=== PATIENT | female | born 1995 | race Caucasian/White ===

== ENCOUNTER 2024-07-31 22:55 | Outpatient (REF) | payer SELFPAY ==
[2024-07-31 21:51] LABS: Bilirubin Negative (Negative); Blood Trace-lysed (Negative); Clarity Clear (Clear); Glucose Negative (Negative); Ketones Negative (Negative); Leukocyte Esterase Trace (Negative); Nitrite Negative (Negative); Urobilinogen 0.2 mg/dL (Up to 0.2)
[2024-07-31 22:10] LABS: Bacteria Negative HPF (Negative); C & S Indicated? No; Crystals Negative HPF (Negative); Epithelial Cells Negative HPF (Negative); Mucus Negative (Negative); RBC 0-2 HPF (0-2); WBC 0-2 HPF (0-5)
--- OUTSIDE RECORDS SUMMARY | 2024-07-31 22:59 | XMS_ITS | Encounter Summary ---
Author Organization [facility] Address [address] [place] [address] Care Team Providers Care Traveling Operator Name Role Phone Pilar Lazcano MD Primary Care Provider Unavailabl e Reason for Referral * Consult, Test and Treat (Routine/Next Available) - Closed Specialty Diagnoses / Procedures Referred By Richard dee Referred To Contact Diagnoses Knee pain Pes planus Patellofemoral joint pain Diana Nunn MD Phone: tel: fax: Referral ID Status Reason Start Date Expiration Date V isits Requested Visits Authorized [id number] Closed Specialty Services Required 06/19/2012 1 1 Question Answer Reason for Request: knee pain, pes planus, patellofemoral pain Comments Please evaluate and treat, quads strengthening, establish home exercise program Reason for Visit * Reason Comments New Patient Visit bilateral knee pain Encounter Details Date Type Department Care Team (Latest Contact Info) Description 06/19/2012 10:00 EDT Office Visit [facility] Pediatric Rheumatology - [facility] [address] [place] [address] Diana Nunn MD [address] [place] [address] Knee pain; Pes planus; Patellofemoral joint pain Discharge Disposition: Auto Discharge Social History Tobacco Use Types Packs/Day Years Used Date Smoking Tobacco: Never Alcohol Use Standard Drinks/Week Comments No 0 (1 standard drink = 0.6 oz pur e alcohol) Comments Unknown Sex and Gender Information Value Date Recorded Sex Assigned at Not on file Legal Sex Female 18:57 EST Gender Identity Not on file Sexual Orientation Not on file documented as of this encounter Last Filed Vital Signs Vital Sign Reading Time Taken Comments Blood Pressure 136/74 06/19/2012 1003 EDT Pulse 71 06/19/2012 1003 EDT Temperature 36.9 ??C (98.4 ??F) 06/19/2012 1003 EDT Respiratory Rate - - Oxygen Saturation - - Inhaled Oxygen Concentration - - Weight 60.5 kg (133 lb 6.1 oz) 06/19/2012 1003 E DT Height 172.5 cm (5' 7.91) 06/19/2012 1003 EDT Body Mass Index 20.33 06/19/2012 1003 EDT Body Mass Index Percentile 50.86% 06/19/2012 100 3 EDT Growth Chart: [facility] (Girls, 2- 20 Years) documented in this encounter Patient Instructions * Patient Instructions* Diana Nunn - 06/19/2012 10:51 EDT Try arch supports If pain persists try PT Likely diagnoses-flat feet, patellofemoral pain documented in this encounter Discharge Disposition Disposition Code Departure Means Destination Auto Discharge documented in this encounter Progress Notes * Diana Nunn - 06/19/2012 1601 EDT Pediatric Rheumatology New Patient Visit 06/19/2012 Reason for referral: New Patient Visit HPI: Polina is seen for the first time in pediatric rheumatology clinic at the request of her PCP:PILAR LAZCANO MD. She has had bilateral knee pain since 03/2012, began in right knee and then spread to the left. Dr. Lazcano felt she had some swelling, had xrays and labs with normal CBC and ESR. She wastried on NSAIDs without much benefit and referred here for further evaluation. Polina has experienced: joint pain and joint swelling and not experienced: alopecia, decrease appetite, chest pain, cough, eye symptoms, fatigue, fevers, GI symptoms, headache, morning stiffness, oral ulcers, rash, Raynaud's Syndrome, shortness of breath, tickbite, weight loss and weight gain. Immunizations are up-to-date. Had a tetanus booster given after these symptoms had started. Climbing stairs and knee extension exercises make the pain worse. No outpatient prescriptions prior to visit. ROS: System Negative Positive Comments Constitutional X Eyes X ENT X Cardiovascular X Pulmonary X Gastrointestinal X Genitourinary X Muscoloskeletal x See HPI Integument/breast X Neurological X Psychiatric X Endocrine x Has a lot of menstrual cramps Hematologic/Lymph X Allergic/Immunologic X Allergies include: Review of patient's allergies indicates no known allergies. Past Medical History Diagnosis Date ??? Allergy environmental ??? Asthma ??? Joint pain ??? Kidney pain recurrent UTI Family History Problem Relation Age of Onset ??? * Mother ??? Melanoma Mother ??? Diabetes Maternal Grandmother ??? Psoriasis Neg Hx ??? Lyme Disease Neg Hx ??? Kidney Disease Neg Hx ??? Inflammatory Bowel Disease Neg Hx ??? Arthritis-Rheumatoid Neg Hx ??? Autoimmune Disease Neg Hx ??? Celiac Disease Neg Hx No past surgical history on file. Living Conditions ??? Lives with Parents Weekdays ??? Education Grade 10 ??? Reported academic performance Average Safety and Environmental Exposures History Substance Use Topics ??? Smoking status: Never Smoker ??? Smokeless tobacco: Not on file ??? Alcohol Use: No History Drug Use No History Sexual Activity ??? Sexually Active: No History Social History Narrative ??? No narrative on file LABS: No results found for any previous visit. Physical Examination: BP 136/74 Pulse 71 Temp(Src) 36.9 ??C (98.4 ??F) (Tympanic) Ht 172.5 cm (67.91) Wt 60.5 kg(133 lb 6.1 oz) BMI 20.33 kg/m2 General: alert, cooperative and no acute distress Growth: normal interval growth Head/Neck: No adenopathy and normal thyroid Eyes: ELEONORA, normal fundi and no synechiae Nose: patent and no erosions Mouth: no oral ulcers and palate clear Nodes: No axillary, inguinal adenopathy or tendernes Chest: lungs clear, no wheezes and no rales CVS: RRR, no murmur, normal pulses and no rub Abdomen: soft, , normal bowel sounds, no hepatosplenomegaly and no masses Skin: No rash noted Neuro: Normal tone, reflexes, and strength MSK: all joints have FROM, no pain on ROM, no swelling or limitation of range noted, gait normal, leg lengths are equal , jaw is symmetric, FROM of the cervical spine and she has some pes planus, pain is elicited with some patellar compression. No tenderness of the tibial tubercle. Impression/Plan: Likely mechanical pain related to pes planus as well as patellofemoral pain. I would recommend orthotics and if not helpful PT referral given. I spent a total of 60 minutes in face to face time with this patient and 40 minutes of that time was spent in counseling and coordination of care as described in the progress note. Diana Nunn MD 06/19/2012 16:01 documented in this encounter Plan of Treatment Scheduled Referrals Name Type Priority Associated Diagnoses Orde r Schedule AMB CONSULT PHYSICAL THERAPY Outpatient Referral Routine Knee pain Pes planus Patellofemoral joint pain Ordered: 06/19/2012 documented as of this encounter Visit Diagnoses Diagnosis Knee pain Pain in joint, lower leg Pes planus Flat foot documented in this encounter Care Teams Traveling Operator Relationship Specialty Start Date End Date Pilar Lazcano MD PCP - General 05/28/12 documented as of this encounter
--- OUTSIDE RECORDS SUMMARY | 2024-07-31 22:59 | XMS_ITS | Encounter Summary ---
Author Organization [facility] Address [address] [place] [address] Care Team Providers Care Director Equipment Name Role Phone Xavi Lazcano MD Primary Care Provider Unavailabl e Encounter Details Date Type Department Care Team (Late st Contact Info) Description 01/04/2018 Results Only [facility] [phone] Ronda Medina, [employer]ER [address] [facility] [address] [place] [id number] Social History Tobacco Use Types Packs/Day Years Used Date Smoking Tobacco: Never Alcohol Use Standard Drinks/Week Comments No 0 (1 standard drink = 0.6 oz pur e alcohol) Comments Unknown Sex and Gender Information Value Date Recorded Sex Assigned at Not on file Legal Sex Female 18:57 EST Gender Identity Not on file Sexual Orientation Not on file documented as of this encounter Plan of Treatment Not on file documented as of this encounter Procedures Procedure Name Priority Date/Time Associated Diagnosis Comments PAP TEST- RESULT ONLY Routine 01/04/2018 0:00 EDT documented in this encounter Results * PAP TEST- RESULT ONLY (01/04/2018 0:00 EDT) Pathology Report: CYTOPATHOLOGY REPORT Reports generated via electronic interface contain original data; however they are lacking the format of the original report. Caution should be taken when reading/interpreti ng unformatted reports. Name: ? PAMELA ALEXANDER ? Accession #: ? [id number] : ? 1995 (Age: 22) ??F ?Collect Date: ? 01/04/2018 Location: ? [facility] ? Receive Date: ? 01/08/2018 Provider: ?RONDA MEDINA [employer]ER Copy to: ? Specimen/Source: ?Pap Test, Cervix/Endocervix, ThinPrep Imaging System with manual evaluation Last Menstrual Period: ? 12/22/2017 ? SPECIMEN ADEQUACY ? Satisfactory for Evaluation - transformation zone component present GENERAL CATEGORIZATION ? Negative for Intraepithelial Lesion or Malignancy ? Document reviewed and electronically signed by: ? WILBERT Dc(ASCP) ? Report Date: ??01/15/2018 13:26 End of Report [facility] 01/04/2018 01/08/2018 us Ronda Medina [employer] PATHOLOGY ORDERABLES Mary her Result [facility] [address] [place] [address] documented in this encounter Visit Diagnoses Not on filedocumented in this encounter Care Teams Director Equipment Relationship Specialty Start Date End Date Xavi Lazcano MD PCP - General 05/28/12 documented as of this encounter
--- OUTSIDE RECORDS SUMMARY | 2024-07-31 22:59 | XMS_ITS | Clinical Summary ---
Author Organization [facility] Address [address] [place] [address] Care Team Providers Care Powder Cutting Operator Name Role Phone Xavi Lazcano MD Primary Care Provider Unavailabl e Allergies No known active allergies Medications No known medications Medical History Medical History Date Comments Allergy environmental Asthma Joint pain Kidney pain recurrent UTI Family History Medical History Relation Comments Diabetes Maternal Grandmother *Other(comment) Mother Melanoma Mother Arthritis-Rheumatoid Neg Hx Autoimmune Disease Neg Hx Celiac Disease Neg Hx Inflammatory Bowel Disease Neg Hx Kidney Disease Neg Hx Lyme Disease Neg Hx Psoriasis Neg Hx Relation Status Comments Brother Alive Father Alive Maternal Grandmother Mother Alive Sister Alive Social History Tobacco Use Types Packs/Day Years Used Date Smoking Tobacco: Never Alcohol Use Standard Drinks/Week Comments No 0 (1 standard drink = 0.6 oz pur e alcohol) Comments Unknown Sex and Gender Information Value Date Recorded Sex Assigned at Not on file Legal Sex Female 18:57 EST Gender Identity Not on file Sexual Orientation Not on file Obstetrics History Last Filed Vital Signs Vital Sign Reading [...] Body Mass Index 20.33 06/19/2012 1003 EDT Plan of Treatment Health Maintenance Due Date Last Done Comments Hepatitis C Screen 1995 Hepatitis B Vaccine (1 of 3 - 19+ 3-dose series) 10/19 COVID-19 Vaccine ( season) 2024 Care Teams Powder Cutting Operator Relationship Specialty Start Date End Date Xavi Lazcano MD PCP - General 05/28/12
--- OUTSIDE RECORDS SUMMARY | 2024-07-31 22:59 | XMS_ITS | Referral Summary ---
Author Organization [facility] Address [address] [place] [address] Care Team Providers Care Electric Arc Welder Name Role Phone Xavi Lazcano MD Primary Care Provider Unavailabl e Allergies No known active allergies Medications No known medications Social History Tobacco Use Types Packs/Day Years Used Date Smoking Tobacco: Never Alcohol Use Standard Drinks/Week Comments No 0 (1 standard drink = 0.6 oz pur e alcohol) Comments Unknown Sex and Gender Information Value Date Recorded Sex Assigned at Not on file Legal Sex Female 18:57 EST Gender Identity Not on file Sexual Orientation Not on file Last Filed Vital Signs Vital Sign Reading [...] 20.33 06/19/2012 1003 EDT Plan of Treatment Not on file Care Teams Electric Arc Welder Relationship Specialty Start Date End Date Xavi Lazcano MD PCP - General 05/28/12
== END 2024-07-31 22:56 | disposition home or self-care (01) ==
LOC: LBN 22:55
PROVIDERS: Visit Provider Nurse Practitioner Family
DX: R39.9 Unspecified symptoms and signs involving the genitourinary system (principal)
CPT/HCPCS: 81003; 81015